=== PATIENT | male | born 1970 | race Caucasian/White ===

== ENCOUNTER 2017-11-16 11:06 | Outpatient (CLI) | payer MEDICARE ==
--- NOTE | 2017-11-16 13:38 | RAD ---
4 VIEWS LEFT CHEST WALL: Date: 11/16/17 INDICATION: Left chest wall pain. FINDINGS: There are mildly displaced anterolateral left 9th through 11th rib fractures. No left-sided pneumotho rax or left-sided lung contusion is evident. IMPRESSION: Left 9th through 11th rib fractures. POS: [facility]
== END 2017-11-16 11:07 | disposition home or self-care (01) ==
LOC: SCSRAD 11:06
PROVIDERS: ATTEND Family Medicine
DX: R07.81 Pleurodynia (principal); S22.42XA Multiple fractures of ribs, left side, initial encounter for closed fracture

== ENCOUNTER 2019-02-28 12:58 | Observation (INO) | payer BC, OTHER ==
[2019-02-28] MEDS ORDERED: Fentanyl 100 MCG/2 ML VIAL ONE ×3 (13:11→16:02)
[2019-02-28] MEDS ORDERED: Ondansetron PF 4 MG/2 ML Vial ONE (13:11)
[2019-02-28 13:24] LABS: #Lymphocytes 1.2 thou/uL (1.20-3.40); #Monocytes 0.6 thou/uL (0.11-0.59); #Neutrophils 8.8 thou/uL (1.40-6.50); %Basophils 0.4 % (0.0-1.0); %Eosinophils 0.1 % (0.0-10.0); %Lymphocytes 10.8 % (21.0-51.0); %Monocytes 5.2 % (0.0-10.0); %Neutrophils 83.4 % (42.0-75.0); Hemoglobin 14.1 g/dL (14.0-18.0); Mean Corpuscular HGB CONC 33.6 g/dL (32.0-36.0); Mean Corpuscular Hemoglobin 29.6 pg (27.0-31.0); Mean Corpuscular Volume 88.3 fL (78.0-98.0); Mean Platelet Volume 7.3 fL (7.4-10.4); Platelet Count 206 thou/uL (130-400); RBC Distribution Width 12.3 % (11.5-14.5); Red Blood Cell (RBC) Count 4.76 mill/uL (4.70-6.10); White Blood Cell (WBC) Count 10.6 thou/uL (4.8-10.8)
[2019-02-28 13:44] LABS: ALT (SGPT) 42 U/L (8-55); AST (SGOT) 38 U/L (5-34); Albumin 4.5 g/dL (3.5-5.0); Alkaline Phosphatase 75 U/L (40-150); Anion Gap 13 mmol/L (10-20); BUN (Urea Nitrogen) 17 mg/dL (8.9-20.6); Bilirubin, Total 0.7 mg/dL (0.2-1.2); Calc. Creatinine Clearance 0 mL/min (70-130); Calcium 9.3 mg/dL (7.8-10.44); Carbon Dioxide 21 mmol/L (22-29); Chloride 108 mmol/L (98-107); Estimated GFR-MDRD 53; Globulin 3.3 g/dL (2.4-3.5); Glucose 127 mg/dL (70-105); Lipase 10 U/L (8-78); Potassium 4.2 mmol/L (3.5-5.1); Protein, Total 7.8 g/dL (6.0-8.3); Sodium 138 mmol/L (136-145)
[2019-02-28 14:18] LABS: Bilirubin Negative (Negative); Blood, Urine Trace (Negative); Clarity Clear (Clear); Glucose, Urine (Dipstick) Negative (Negative); Leukocyte Negative (Negative); Nitrite Negative (Negative); Protein, Urine (Dipstick) 30 mg/dL (Neg-Trace)
[2019-02-28] MEDS ORDERED: Morphine 4 MG/ML VIAL ONE ×2 (14:22→15:31)
[2019-02-28 14:29] LABS: Bacteria/HPF Rare-Few HPF (None Seen); RBC/HPF 0-3 HPF (0-3); Squamous Epithelial None Seen HPF (0-3); WBC/HPF 0-3 HPF (0-3)
[2019-02-28 14:30] LABS: Epithelial Cast None Seen LPF (None Seen)
[2019-02-28] MEDS ORDERED: HYDROcodone/Acetaminophen 5/325 mg Tablet ONE (15:31)
--- NOTE | 2019-02-28 15:31 | CT ---
CT ABDOMEN AND PELVIS WITHOUT CONTRAST STONE PROTOCOL: HISTORY: Left flank pain. COMPARISON: CT stone protocol 09/24/2016. FINDINGS: There is left gynecomastia. The lung bases are clear. No pericardial effusion. Diffuse hepatic samantha atosis. Moderate left hydroureteral nephrosis due to a left UPJ calculus measuring 8 mm in craniocaudal lengt h x an AP width of 5 mm. Punctate interpolar left renal calculus is present. Punctate right inferior renal calculus is presen t. No right hydroureteral nephrosis. No calculus within the urinary bladder. Moderate left perinep hric stranding. The aortoiliac contour is nonaneurysmal. Posterior spinal fusion hardware at L4-5 diskectomy change. No acute osseous abnormality. Noncontrast evaluation of the spleen and pancreas are unremarkable as well as the adrenal glands. No dilated loops of large or small bowel. The appendix is visualized and is normal. IMPRESSION: 1. Obstructive calculus proximal left ureter at the ureteropelvic junction as described with moderat e left hydronephrosis and perinephric stranding. 2. Diffuse hepatic steatosis. POS: [facility]
[2019-02-28] MEDS ORDERED: Morphine 4 MG/ML VIAL SLOW IVP PRN (19:35)
[2019-02-28] MEDS ORDERED: Ondansetron PF 4 MG/2 ML Vial IVP PRN (19:36)
[2019-02-28] MEDS ORDERED: Ondansetron ODT 4 MG TAB SL PRN (19:36)
[2019-02-28 19:43] VITALS: BMI 31.4
[2019-02-28] MEDS: Fentanyl 100 MCG/2 ML VIAL SLOW IVP PRN ×2 (19:59→23:31)
[2019-02-28] MEDS: Sodium Chloride 0.9% 1,000 ML IV SCH (20:04)
--- NOTE | 2019-03-01 01:31 | HP ---
REASON FOR ADMISSION: Left ureteral stone. HISTORY OF PRESENT ILLNESS: Mr. Blake is a 48-year-old white male, who presented to the emergency room today with complaints of severe 9/10 left flank pain. The pain was severe and radiated around toward his groin. He stated he initially thought that he may have pulled some muscles in his back as he was working in his barn most of the weekend in hot weather. He was drinking large amounts of water, but began having pain which progressively got worse when the pain got significantly bad enough that he started getting nauseated and was not able to control his pain. The patient does have a reported history of kidney stones which he has passed in the past approximately 4 times previously. He felt that he was probably having another kidney stone, so went into the emergency room. There, he had a CT scan, which demonstrated an approximately 8 mm left UPJ stone with hydronephrosis and some perinephric stranding. After multiple rounds of pain medications, the patient's pain was not well controlled and so I had recommended admission to the hospital for further IV pain control and consideration for ureteral stent placement. There were also some elements of renal insufficiency based on his creatinine, which is currently at 1.43, although the patient reports that he has not drank much water today since the pain became more significant. On my discussion with the patient, he does not report any prior history of urinary difficulties, urinary problems. He denies any hematuria outside of kidney stones. He has no history of urinary tract infections and he has never required any previous urologic surgeries for kidney stones. PAST MEDICAL HISTORY: 1. 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 2. Irritable bowel syndrome. 3. Nephrolithiasis. PAST SURGICAL HISTORY: 1. Spinal fusion with two disks were placed. 2. Arthroscopic right knee surgery. ALLERGIES: PENICILLIN. HOME MEDICATIONS: None. SOCIAL HISTORY: The patient denies alcohol use, illicit drug use, and does not smoke. FAMILY HISTORY: Noncontributory for stone disease. REVIEW OF SYSTEMS: A 12-point review of system was reviewed and otherwise negative other than what was commented on the HPI. PHYSICAL EXAMINATION: VITAL SIGNS: Temperature 98.7, pulse 56, respirations 20, blood pressure 141/87, saturation 99% on room air. GENERAL: No apparent distress, communicative and alert, well nourished, well developed, appears stated age, overweight. HEENT: Normocephalic, atraumatic. Pupils are symmetric and round. Trachea midline. Moist mucous membranes. CARDIOVASCULAR: Regular rate and rhythm. Normal S1 and S2. Symmetric pulses. CHEST: No increased work of breathing. Symmetric expansion of the lungs, clear anteriorly. ABDOMEN: Soft, nontender, and nondistended with positive bowel sounds. No organomegaly. No hernias. No rebound or guarding or peritoneal signs. There is mild left CVA tenderness. No right-sided CVA tenderness. : Deferred at this time. EXTREMITIES: No clubbing, cyanosis, or edema. MUSCULOSKELETAL: No joint deformities or joint erythema noted. Full range of motion. NEUROLOGIC: Cranial nerves 2 through 12 grossly intact. No focal or sensory-motor deficits identified. LYMPHS: There are no lymph nodes enlarged in the cervical, supraclavicular or inguinal regions. SKIN: Warm and dry. Good turgor. No rashes or lesions. PSYCHIATRIC: Alert and oriented x3. Appropriate mood and affect for patient's situation. LABORATORY EVALUATION: The full set of labs are in the [facility] system, which I have reviewed. Of note, white count is 10.6 with hemoglobin 14.1, creatinine is 1.43. Urinalysis demonstrates trace blood, 1+ amorphous crystals, rare few bacteria, nitrite negative, and leukocyte esterase negative. CT from February 28 demonstrates punctate bilateral nephrolithiasis with an obstructive 8 x 5 mm left UPJ calculus with moderate left hydronephrosis and some perinephric stranding. Diffuse hepatic steatosis. There is also degenerative disk disease. ASSESSMENT AND PLAN: A 48-year-old white male with a left ureteral stone with hydronephrosis with poorly controlled pain and elements of renal insufficiency. The patient has an unlikely urinary tract infection, but this cannot be definitively confirmed. Due to the renal insufficiency, possible for a rare urinary tract infection, I have recommended that the patient undergo ureteral stent at this time. We will await a final urine culture and once we have proved that is negative, we could move forward with the ureteroscopy. I went over ureteral stent placement including risks and benefits. Risks which include, but are not limited to bleeding, infection, inability to pass the stent, ureteral damage, and ureteral stricture formation. He understands the risks and states he would like to proceed forward with a ureteral stent to alleviate his pain and improve renal function. We will then plan for definitive ureteroscopy on Thursday. I have also discussed shockwave lithotripsy after discussing ureteroscopy versus lithotripsy. He states he would rather do ureteroscopy for the higher success rate. The risks and benefits of ureteroscopy were additionally discussed. Risks, which include bleeding, infection, ureteral injury, bladder perforation, bladder injury, renal damage or renal injury, ureteral stricture formation, ureteral perforation, and incomplete stone removal and need for further surgeries. He understands those risks as well and states that he would be willing to proceed forward on Thursday for ureteroscopy assuming that his urine culture comes out negative and he does have renal function improvement after the stent placement. We will keep him n.p.o. after midnight and have antibiotics on-call to the OR, have SCDs on-call to the OR, and plan for cysto and left ureteral stent placement tomorrow during the day. Job ID: [id number]
[2019-03-01] MEDS: Fentanyl 100 MCG/2 ML VIAL SLOW IVP PRN ×6 (01:51→11:37)
[2019-03-01] MEDS: Sodium Chloride 0.9% 1,000 ML IV SCH ×3 (01:55→08:11)
[2019-03-01] MEDS ORDERED: Morphine 4 MG/ML VIAL SLOW IVP PRN (06:13)
[2019-03-01] MEDS ORDERED: Ondansetron ODT 4 MG TAB SL PRN (06:14)
[2019-03-01] MEDS ORDERED: Ondansetron PF 4 MG/2 ML Vial IVP PRN (06:14)
[2019-03-01] MEDS ORDERED: Acetaminophen 500 MG TAB PO SCH (06:15)
[2019-03-01] MEDS ORDERED: PROPOFOL 200 MG/20 ML VIAL ONE (10:01)
[2019-03-01] MEDS ORDERED: Metoclopramide HCl 10 MG/2 ML VIAL ONE (10:01)
[2019-03-01] MEDS ORDERED: Dexamethasone 20 MG/5 ML VIAL ONE (10:01)
[2019-03-01] MEDS ORDERED: Lidocaine 1% PF 5 ML VIAL ONE (10:01)
[2019-03-01] MEDS ORDERED: Ondansetron PF 4 MG/2 ML Vial ONE (10:01)
[2019-03-01] MEDS ORDERED: diphenhydrAMINE 50 MG/ML VIAL ONE (11:35)
[2019-03-01] MEDS ORDERED: diphenhydrAMINE 50 MG/ML VIAL IVP PRN (11:52)
[2019-03-01] MEDS ORDERED: Fentanyl 100 MCG/2 ML VIAL ONE ×2 (13:07→14:04)
[2019-03-01] MEDS ORDERED: Iothalamate Meglumine 60% 50 ML VIAL FS ONE (13:31)
[2019-03-01] MEDS ORDERED: Levofloxacin 500 mg/D5W 100 ml Premix Bag ONE (13:49)
[2019-03-01] MEDS ORDERED: Famotidine/PF 20 mg/2ml Vial ONE (14:09)
[2019-03-01] MEDS ORDERED: Midazolam HCl 2 mg/2 ml Vial ONE (14:09)
[2019-03-01] MEDS ORDERED: Meperidine HCl/PF 25 MG/ML VIAL SLOW IVP PRN (14:34)
[2019-03-01] MEDS ORDERED: Promethazine HCl 25 MG/ML VIAL SLOW IVP PRN (14:34)
[2019-03-01] MEDS ORDERED: Ondansetron HCl/PF 4 MG/2 ML Vial IVP PRN (14:34)
[2019-03-01] MEDS ORDERED: Promethazine HCl 25 MG/ML VIAL IM PRN (14:34)
--- NOTE | 2019-03-01 15:45 | OP ---
DATE OF PROCEDURE: 03/01/2019 SERVICE: Urology. PREOPERATIVE DIAGNOSIS: Left ureteral stone. POSTOPERATIVE DIAGNOSIS: Left ureteral stone. PROCEDURES PERFORMED: Cystoscopy, left retrograde pyelogram, and left ureteral stent placement 6 x 28 double-J stent. INDICATIONS FOR PROCEDURE: Mr. Blake is a 48-year-old white male, who presented with a 2-day history of worsening left flank pain. On the day of his admission, he was diagnosed with an approximately 8 x 5 mm left proximal ureteral stone with hydronephrosis. His pain was poorly controlled without evidence of acute kidney injury. We elected for ureteral stent placement with definitive stone management at a later date. Risks and benefits of the procedure were discussed and he has agreed to proceed forward. DESCRIPTION OF PROCEDURE: After identification of armband and verification of consent, the patient was brought back to the operating room, where he underwent general anesthesia with LMA. He was then placed in dorsal lithotomy position and prepped and draped in usual sterile fashion. After appropriate time-out, a lubricated 22-Sammarinese rigid cystoscope was attempted to be introduced into the urethra, but the meatus was too narrow. Dilators were used to dilate the meatus from a 20-Sammarinese up to a 26-Sammarinese. At which point, the cystoscope was passed with ease to the urethra, which was normal. The prostate was not hypertrophic and not obstructed. The bladder was unremarkable with no mucosal abnormalities. Both ureters were in the orthotopic location. Attention was turned to the left ureteral orifice, which was cannulated with a 5-Sammarinese [place] catheter and retrograde pyelogram performed, which demonstrated normal caliber slender ureter and a slightly dilated hydronephrotic left kidney. The stone was radiolucent and no filling defect was appreciated indicating that likely the retrograde pushed the stone back up into the kidney. A Sensor wire was then advanced through the left ureteral orifice up to the level of the kidney and a 6 x 28 double-J stent advanced over the Sensor wire up to the level of renal pelvis. The wire was removed leaving a good curl in the kidney and a good curl in the bladder. The bladder was then drained and the cystoscope was removed. The patient was then awakened and taken to PACU for recovery in stable condition. COMPLICATIONS: None. ESTIMATED BLOOD LOSS: Minimal. RETAINED TUBES AND DRAINS: 6 x 28 double-J stent on the left. SPECIMENS: None. DISPOSITION: The patient will be discharged home and follow up with me on Thursday for definitive ureteroscopy and laser lithotripsy. Job ID: [id number]
[2019-03-01 16:36] VITALS: BP 119/77; TEMP 97.7
== END 2019-03-01 16:37 | disposition home or self-care (01) ==
LOC: SCSER 12:58 → SURG A 17:23 → SCSER 18:37
PROVIDERS: ADMIT Urology; ATTEND Urology
PROC: 0T778DZ Dilation of Left Ureter with Intraluminal Device, Via Natural or Artificial Opening Endoscopic (ICD-10-PCS; principal; 2019-03-01)
DX: N13.2 Hydronephrosis with renal and ureteral calculous obstruction (principal); K58.9 Irritable bowel syndrome, unspecified; Z98.1 Arthrodesis status; Z88.0 Allergy status to penicillin; Z88.6 Allergy status to analgesic agent
CPT/HCPCS: 74176; 80053; 81003; 81015; 83690; 85025; 87086; 96361; 96374; 96375; 96376; C1758; C1769; G0378; J0131; J1100; J1170; J1200; J1956; J2001; J2250; J2270; J2405; J2704; J2765; J3010; S0028

== ENCOUNTER → 2019-03-04 | Day surgery (SDC) | payer BC ==
[2019-03-03 10:24] VITALS: BMI 31.4
[~2019-03-04] MED LIST: Dexamethasone 20 MG/5 ML VIAL ONE; Fentanyl 100 MCG/2 ML VIAL ONE; Levofloxacin 500 mg/D5W 100 ml Premix Bag ONE; Lidocaine 1% PF 5 ML VIAL ONE; Ondansetron PF 4 MG/2 ML Vial ONE; PROPOFOL 200 MG/20 ML VIAL ONE
--- NOTE | 2019-03-04 15:45 | OP ---
DATE OF PROCEDURE: 03/04/2019 SERVICE: Urology. PREOPERATIVE DIAGNOSIS: Left ureteral stone. POSTOPERATIVE DIAGNOSIS: Left renal stone. PROCEDURES PERFORMED: Left ureteroscopy, laser lithotripsy, basket extraction of stone, and placement of a 6 x 26 double-J stent with string attached. INDICATION FOR PROCEDURE: Mr. Blake is a 48-year-old white male, who initially presented to the ER with left flank pain. He had an 8 mm stone in the proximal ureter. We placed the stent urgently at that time due to uncontrolled pain. He is now returning for definitive stone management after risks and benefits and all options have been discussed. DESCRIPTION OF PROCEDURE: After identification of armband and verification of consent, the patient was brought back to the operating room, where he underwent general anesthesia with an LMA. He was placed in dorsal lithotomy position and prepped and draped in usual sterile fashion. After appropriate time-out, attempts to pass a lubricated 22-Wolof rigid cystoscope was unsuccessful due to the small meatus. The meatus had to be dilated using Roberto sounds up to 26-Wolof. At that point, the cystoscope could be passed easily through the urethra into the bladder and attention turned to the left ureteral orifice from which there was a stent emanating. The stent was grasped with flexible graspers and brought up to the level of the urethral meatus. A 0.035 Sensor wire was advanced through the ureteral stent up to the level of the renal pelvis, and then the stent removed and discarded. A dual-lumen catheter was then advanced over the Sensor wire up to the level of proximal ureter. An Amplatz Super Stiff wire was then placed through the second lumen up to the level of renal pelvis. Dual-lumen catheter was then removed, and the Sensor wire was secured to the drapes as a safety wire. An 1113 x 46 cm ureteral access sheath was then advanced up the ureter up to the level of the ureteropelvic junction. Inner cannula and Super Stiff wire were then removed leaving the outer sheath and Sensor wire in place as a safety wire. A flexible digital disposable ureteroscope was then passed up the ureteral access sheath into the kidney. In the lower pole using the 1.9-Wolof ZeroTip Nitinol basket, the stone was repositioned into the upper pole for easier fragmentation. A 200 micron ball-tip laser fiber was then used to fragment the stone into small pieces. Using the dusting setting, some of the larger fragments were removed for stone extraction. Upon completion, there were no fragments remaining. There were over a millimeter in size, and there was significant amount of dust and debris. I felt this should all pass without any problems. Pull-back ureteroscopy was employed, and no additional stones were found in the ureter. A pyeloscopy was performed in the rest of the calyces also before coming out and no additional stone fragments were noted. The cystoscope was then backloaded over the Sensor wire back into the bladder, and a 6 x 26 double-J stent with string attached was advanced over the Sensor wire up to the level of renal pelvis. The wire was removed leaving a good curl in the kidney and bladder, and the cystoscope was then removed. After draining the bladder, the string was attached to the patient's penis with an OpSite. The patient was then taken out of lithotomy, awakened, and taken to PACU for recovery in stable condition. COMPLICATIONS: None. ESTIMATED BLOOD LOSS: Minimal. RETAINED TUBES AND DRAINS: A 6 x 26 double-J stent on the left with string still attached. SPECIMENS: Stone for stone analysis. DISPOSITION: The patient will be discharged home and follow up with me in approximately 1 week. At which point, he will be instructed to remove his stent before followup or we will remove it at the time of his followup. Job ID: [id number]
== END ==
LOC: SDC 12:22
PROVIDERS: ATTEND Urology
PROC: 0TF48ZZ Fragmentation in Left Kidney Pelvis, Via Natural or Artificial Opening Endoscopic (ICD-10-PCS; principal; 2019-03-04)
PROC: 0T778DZ Dilation of Left Ureter with Intraluminal Device, Via Natural or Artificial Opening Endoscopic (ICD-10-PCS; principal; 2019-03-04)
DX: N20.0 Calculus of kidney (principal); K58.9 Irritable bowel syndrome, unspecified; Z88.0 Allergy status to penicillin; Z88.6 Allergy status to analgesic agent; Z98.890 Other specified postprocedural states; Z98.1 Arthrodesis status
CPT/HCPCS: 76000; 82365; 88300; C1758; C1769; J1100; J1956; J2001; J2405; J2704; J3010

== ENCOUNTER 2019-03-21 06:57 | Outpatient (CLI) | payer BC ==
--- NOTE | 2019-03-21 08:04 | ULT ---
RENAL ULTRASOUND: CLINICAL HISTORY: Nephrolithiasis. COMPARISON: Reference is made to 02/28/2019 CT exam. FINDINGS: There is a punctate focus of increased echogenicity of the right kidney which may account for punctat e nephrolithiasis on the preceding CT exam. Although, no right side hydronephrosis. The left kidney reveals minimal prominence of the collecting system without significant hydronephrosis. There is no significant perinephric edema. Urinary bladder is grossly unremarkable. IMPRESSION: 1. Given differences in imaging modalities, interval improvement of prior left side obstructive urop athy. Slight prominence of the left renal collecting system remains. 2. Punctate echogenicity of the right kidney which may account for a punctate nephrolithiasis on pre ceding CT exam. No right side hydronephrosis. 3. Incidental note of hepatic steatosis. POS: [facility]
== END 2019-03-21 06:58 | disposition home or self-care (01) ==
LOC: BICULT 06:57
PROVIDERS: ATTEND Urology
DX: N20.0 Calculus of kidney (principal); N28.89 Other specified disorders of kidney and ureter
CPT/HCPCS: 76770

== ENCOUNTER 2019-05-06 07:37 | Outpatient (CLI) | payer BC, OTHER ==
--- NOTE | 2019-05-06 10:07 | CT ---
NECK CT WITH IV CONTRAST: Date: 05/06/19 COMPARISON: None. HISTORY: Left-sided parotid mass lesion. TECHNIQUE: Axial CT imaging at 3 mm intervals from the skull base through the lung apices with IV contrast. Tina nal and sagittal reformatted imaging obtained. FINDINGS: The imaged lung apices are unremarkable. The imaged paranasal sinuses and mastoid air cells are well aerated. The retroantral fat and the para pharyngeal fat appears clear bilaterally. There is questionable mild increased density throughout the left parotid gland when compared to the r ight, which may be on the basis of a mild degree of inflammatory change. The left parotid gland is no t enlarged when compared to the right, and there is no evidence for a parotid mass on either side. There is no evidence for a calcification along the course of the parotid duct on either side. The submandibular glands are unremarkable. The tonsillar pillars, the hyoid bone, the thyroid cartilage, the cricoid cartilage, the thyroid glan d, and the level of the glottis appear unremarkable. The vascular structures of the neck appear patent. No lymphadenopathy is seen within the neck. Review of the osseous structures demonstrates no discrete lytic or blastic bone lesion. IMPRESSION: No parotid mass is identified on either side. No lymphadenopathy is seen. There is mild increased den sity seen diffusely within the parotid gland on the left which could be associated with mild inflamma tory change. POS: [facility]
== END 2019-05-06 07:38 | disposition home or self-care (01) ==
LOC: BICCT 07:37
PROVIDERS: ATTEND Student in an Organized Health Care Education/Training Program
DX: K11.8 Other diseases of salivary glands (principal)
CPT/HCPCS: 70491